=== PATIENT | female | born 1980 | race Caucasian/White ===

== ENCOUNTER 2024-03-06 08:23 | Outpatient (CLI) | payer BC | END 2024-03-06 08:24 | disposition home or self-care (01) | LOC: CSHULT 08:23 | PROVIDERS: ATTEND Family Medicine | DX: R10.11 Right upper quadrant pain (principal); K80.20 Calculus of gallbladder without cholecystitis without obstruction; K76.0 Fatty (change of) liver, not elsewhere classified | CPT/HCPCS: 76705 ==